=== PATIENT | female | born 1960 | race Caucasian/White ===

== ENCOUNTER → 2024-05-28 | Outpatient (CLI) | payer SELFPAY ==
[2024-05-28 18:20] LABS: Absolute Lymphocyte Count 1.63 X10^3/uL (0.83-4.51); Absolute Neutrophil Count 2.5 X10^3/uL (2.0-7.7); Basophil# 0.04 X10^3/uL; Basophil% 0.9 % (0-1); Eosinophil# 0.08 X10^3/uL; Eosinophils% 1.7 % (0-5); Hematocrit 37.8 % (37-47); Hemoglobin 12.7 g/dL (12.0-15.0); Lymphocyte # 1.63 X10^3/ul (0.83-4.51); Lymphocyte % 35.4 % (19-41); Mean Corp Hgb Conc 33.6 g/dL (32-36); Mean Corpuscular Hgb 31.5 pg (27.0-32.0); Mean Corpuscular Volume 93.8 fL (81-99); Mean Platelet Vol. 10.1 fl (6.2-12.0); Monocyte# 0.36 X10^3/uL; Monocyte% 7.8 % (0-10); NRBC Flagged by Analyzer 0 % (0-5); Neutrophil # 2.48 X10^3/uL (2.7-7.7); Platelet Count 280 K/mm3 (150-450); RBC Distribution Width CV 13.2 % (11.6-14.6); RBC Distribution Width SD 45.7 fl (35.1-43.9); Red Blood Count 4.03 M/mm3 (4.2-5.4); White Blood Count 4.6 K/mm3 (4.4-11.0)
[2024-05-28 18:29] LABS: CRP < 3.00 mg/L (0.0-3.0)
[2024-05-28 18:33] LABS: Erythrocyte Sedimentation Rate 18 mm/hr (0-30)
== END | disposition home or self-care (01) ==
LOC: MTLAB 16:23 → LAB 17:01 → MTLAB 17:02
PROVIDERS: PCP Nurse Practitioner Primary Care; Referring Provider Internal Medicine Pulmonary Disease; Visit Provider Internal Medicine Pulmonary Disease
DX: R91.1 Solitary pulmonary nodule (principal)
CPT/HCPCS: 36415; 82164; 82784; 82785; 85025; 85652; 86140; 86480; 87385

== ENCOUNTER → 2024-06-26 | Outpatient (CLI) | payer SELFPAY ==
[2024-06-26 18:08] LABS: Erythrocyte Sedimentation Rate 5 mm/hr (0-30)
[2024-06-28 14:08] LABS: Angiotensin Convert Enzyme 74 U/L (14-82)
== END | disposition home or self-care (01) ==
LOC: MTLAB 13:20
PROVIDERS: PCP Nurse Practitioner Primary Care; Referring Provider Internal Medicine Pulmonary Disease; Visit Provider Internal Medicine Pulmonary Disease
DX: R91.8 Other nonspecific abnormal finding of lung field (principal); R05.9 Cough, unspecified
CPT/HCPCS: 36415; 82164; 85652

== ENCOUNTER → 2024-08-27 | Outpatient (CLI) | payer SELFPAY ==
--- NOTE | 2024-08-27 12:43 | CT_ITS ---
PROCEDURE: CHEST WITHOUT CONTRAST 08/27/2024 REASON FOR EXAM: OTHER NONSPECIFIC ABNORMAL FINDING OF LUNG FIELD TECHNIQUE: Chest CT without contrast. Coronal and Sagittal reconstruction series were provided. One or more dose reduction techniques were used (e.g., Automated exposure control, adjustment of the mA and/or kV according to patient size, use of iterative reconstruction technique RADIATION DOSE SUMMARY: CTDlvol: 9 mGy DLP: 328 mGycm COMPARISON: 05/16/2024 FINDINGS: Central airways are patent. Bronchial wall thickening. There is redemonstration of multifocal, bilateral, tree-in-bud densities, and areas of septal thickening, right lung [id number], without notable interval change since the previous examination. Small right middle lobe atelectasis redemonstrated. New small left posterior lower lobe atelectasis. No definite new consolidation. No effusion or pneumothorax. Unremarkable base of neck and axilla. Thoracic spine degeneration. Normal esophagus. Normal heart size. No acute vascular pathology. Mediastinal adenopathy, likely reactive. No acute chest wall findings. No acute upper abdominal findings. CT/Chest without Contrast IMPRESSION: Overall stable appearance to bilateral lung densities most consistent with infe ctious/inflammatory condition. Consider six-month follow up imaging, or as clinically determined. Reading Location: [place] [id number]
== END | disposition home or self-care (01) ==
LOC: CT 12:40
PROVIDERS: PCP Nurse Practitioner Primary Care; Referring Provider Internal Medicine Pulmonary Disease; Visit Provider Internal Medicine Pulmonary Disease
DX: R91.8 Other nonspecific abnormal finding of lung field (principal); R05.9 Cough, unspecified
CPT/HCPCS: 71250

== ENCOUNTER → 2025-02-06 | Outpatient (CLI) | payer SELFPAY ==
--- NOTE | 2025-02-06 16:21 | CT_ITS ---
EXAM: CT Chest Without Intravenous Contrast CLINICAL INDICATION: ABN FINDING OF LUNG FIELD TECHNIQUE: Axial computed tomography images of the chest without intravenous contrast. This CT exam was performed using one or more of the following dose reduction techniques: automated exposure control, adjustment of the mA and/or kV according to patient size, and/or use of iterative reconstruction technique. RADIATION DOSE: CTDIvol = 8.6 mGy, DLP = 317.1 mGy-cm COMPARISON: No relevant prior studies available. FINDINGS: LUNGS AND PLEURAL SPACES: Diffuse bilateral tree-in-bud opacities with nodularity of both lungs measuring up to 9 mm, unchanged. No significant effusion. No pneumothorax. HEART: Unremarkable. No cardiomegaly. No significant pericardial effusion. No significant coronary artery calcifications. MEDIASTINUM: Scattered mediastinal lymph nodes some of which are upper limits of normal in size and are most likely reactive lymph nodes. BONES/JOINTS: Unremarkable. No acute fracture. SOFT TISSUES: Unremarkable. VASCULATURE: Unremarkable. No thoracic aortic aneurysm. LYMPH NODES: See above. CT/Chest without Contrast IMPRESSION: 1. Diffuse bilateral tree-in-bud opacities with nodularity of both lungs measu ring up to 9 mm, unchanged. 2. Scattered mediastinal lymph nodes some of which are upper limits of normal in size and are most likely reactive lymph nodes. Reading Location: [facility]
--- OUTSIDE RECORDS SUMMARY | 2025-02-06 16:36 | XMS RPT_ITS | CCD ---
Author Organization [facility] Care Team Providers Care Skilled Nursing Case Manager Name Role Phone LEONARD DISABILITY MANAGER-BELT BUILDER HELPER, DON S Primary Care Physicia n LEONARD DISABILITY MANAGER-BELT BUILDER HELPER, DON S Primary Care Unava ilable KHOI DISABILITY MANAGER-BELT BUILDER HELPER, YAMILETH Attending Unavailab le LEONARD DISABILITY MANAGER-BELT BUILDER HELPER, DON S Attending Unava ilable LEONARD DISABILITY MANAGER-BELT BUILDER HELPER, DON S Primary Care Unava ilable LEONARD DISABILITY MANAGER-BELT BUILDER HELPER, DON S Primary Care Unava ilable JAMESON LUIS DO Attending Unavailable LUCAS DISABILITY MANAGER-BELT BUILDER HELPER, ARAMIS Xiong Attending Un available LEONARD DISABILITY MANAGER-BELT BUILDER HELPER, DON S Primary Care Unava ilable LEONARD DISABILITY MANAGER-BELT BUILDER HELPER, DON S Attending Unava ilable LEONARD DISABILITY MANAGER-BELT BUILDER HELPER, DON S Primary Care Unava ilable LEONARD DISABILITY MANAGER-BELT BUILDER HELPER, DON S Primary Care Unava ilable LEONARD DISABILITY MANAGER-BELT BUILDER HELPER, DON S Attending Unava ilable LEONARD DISABILITY MANAGER-BELT BUILDER HELPER, DON S Attending Unava ilable LEONARD DISABILITY MANAGER-BELT BUILDER HELPER, DON S Primary Care Unava ilable LEONARD DISABILITY MANAGER-BELT BUILDER HELPER, DON S Attending Unava ilable LEONARD DISABILITY MANAGER-BELT BUILDER HELPER, DON S Primary Care Unava ilable [place] POLL WATCHER-C, Don Primary Care Provider Dr. Juan Pablo Laguna MD, V Attending Provider Dr. uJan Pablo Laguna MD, V Referring Provider Juan Pablo Laguna V Attending Unavailable Juan Pablo Laguna V Referring Unavailable Leonard POLL WATCHERDon Primary Care Unavailable Leonard POLL WATCHER, Don Primary Care Unavailable Juan Pablo Laguna V Attending Unavailable Juan Pablo Laguna V Referring Unavailable LeonardDon stafford NP Primary Care Unavailable Juan Pablo Laguna V Attending Unavailable Juan Pablo Laguna V Referring Unavailable Allergies Allergy Classification Reported Allergen(s) Allergy Type Date of Onset Reaction(s) Facility (1 source) Penicillin; Translations: [penicillins] Drug Allergy Weal (disorder), Eruption of skin (disorder) [facility] [place] Medications Current Medications Medication Drug Class(es) Dates Sig (Normalized) Sig (Original) Co-Q10 (3 sources) Start: 10-01-2014 take 1 dose by mouth once daily Co-Q10 Dose : 500 mg =, Oral, qDay, 0 Refill(s) Start Date: 10/01/14 Status: Ordered Repeat number: 1 Start: 10-01-2014 take 1 dose by mouth once campos y Co-Q10 Dose : 500 mg =, Oral, qDay, 0 Refill(s) Start Date: 10/01/14 Status: Ordered Fish Oils (3 sources) Start: 10-01-2014 omega-3 fish o il 1000 mg oral capsule Dose : 1,000 mg = 1 cap(s), Oral, Daily, # 60 cap(s), 0 Refill(s) Start Date: 10/01/14 Status: Ordered Quantity: 60.0 Unit: cap(s) Repeat number: 1 Start: 10-01-2014 omega-3 fish o il 1000 mg oral capsule Dose : 1,000 mg = 1 cap(s), Oral, Daily, # 60 cap(s), 0 Refill(s) Start Date: 10/01/14 Status: Ordered Milk thistle extract (3 sources) Start: 10-01-2014 take 1 tablet by mouth once daily Milk Thistle oral tablet 1 tab, Oral, Daily, 0 Refill(s) Start Date: 10/01/14 Status: Ordered Repeat number: 1 Start: 10-01-2014 take 1 tablet by nica th once daily Milk Thistle oral tablet 1 tab, Oral, Daily, 0 Refill(s) Start Date: 10/01/14 Status: Ordered Nature's Bounty Women's Daily Multivitamin (3 sources) Start: 10-01-2014 take 1 tablet by mouth once daily Nature's Bounty Women's Daily Multivitamin 1 tab, Oral, qDay, 0 Refill(s) Start Date: 10/01/14 Status: Ordered Repeat number: 1 Start: 10-01-2014 take 1 tablet by nica th once daily Nature's B[employer] Women's Daily Multivitamin 1 tab, Oral, qDay, 0 Refill(s) Start Date: 10/01/14 Status: Ordered Red Yeast Rice 600 mg oral capsule (1 source) Start: 07-04-2023 Red Yeast Rice 600 mg oral capsule 0 Refill(s) Start Date: 07/04/23 Status: Ordered Repeat number: 1 Reversitol (3 sources) Start: 10-01-2014 take 1 capsule by mouth once daily Reversitol 1 capsule, Oral, Daily, 0 Refill(s) Start Date: 10/01/14 Status: Ordered Repeat number: 1 Start: 10-01-2014 take 1 capsule by mo uth once daily Reversitol 1 capsule, Oral, Daily, 0 Refill(s) Start Date: 10/01/14 Status: Ordered Completed/Discontinued Medications Medication Drug Class(es) Dates Sig (Normalized) Sig (Original) calcium carbonate 1500 mg oral tablet (3 sources) Start: 11-13-2018 End: 02-11-2019 calcium (as carbonate) 600 mg oral tablet Dose : 600 mg = 1 tab(s), Oral, BIDM, # 60 tab(s), 2 Refill(s), Pharmacy: [id number] Start Date: 11/13/18 Stop Date: 02/11/19 Status: Ordered Quantity: 60.0 Unit: tab(s) Repeat number: 3 cholecalciferol 0.01 mg oral tablet (2 sources) Vitamin D Start: 11-13-2018 End: 02-11-2019 cholecalciferol 400 intl units oral tablet Dose : 800 unit(s) = 2 tab(s), Oral, Daily, # 60 tab(s), 2 Refill(s), Pharmacy: [id number] Start Date: 11/13/18 Stop Date: 02/11/19 Status: Ordered Problems Active Problems Problem Classification Problem Date Documented Da te Episodic/Chronic Allergic reactions (1 source) Eruption due to drug 10-26-2023 Episodic Osteoarthritis (3 sources) Arthritis 10-01-2014 Chronic Other gastrointestinal disorders (3 sources) Constipation 10-01-2014 Episodic Other lower respiratory disease (1 source) Cough 04-10-2024 Episodic Other lower respiratory disease (1 source) Other nonspecific abnormal finding of lung field; Translations: [Other nonspecific abnormal finding of lung field] Onset: 08-29-2024 Episodic Other upper respiratory disease (1 source) Allergic rhinitis 04-10-2024 Chronic Other upper respiratory infections (2 sources) Acute maxillary sinusitis; Translations: [Posterior rhinorrhea] 04-12-2023 Episodic Residual codes; unclassified (3 sources) Postmenopausal state 10-17-2018 Episodic Unclassified (8 sources) Patient encounter status 10-17-2018 Unclassified (6 sources) Screening status 10-17-2018 Unclassified (2 sources) Cancer cervix screening status 09-30-2022 Past or Other Problems Problem Classification Problem Date Documented Da te Episodic/Chronic Other lower respiratory disease (1 source) Solitary pulmonary nodule; Translations: [Solitary pulmonary nodule] Onset: 05-31-2024 Episodic Other screening for suspected conditions (not mental disorders or infectious disease) (2 sources) Encounter for screening for malignant neoplasm of cervix; Translations: [Encounter for screening for malignant neoplasm of cervix] Onset: 09-30-2022 Episodic Results Test Name Value Interpretation Reference Range Facility Chest without Contraston Chest without Contrast [facility] [address] [place], [place] [address] Chest without Contrast MR#: [id number] Acct: [id number] Name: HUEY PRATER Rep #: [id number] : 1960 F 64 From: Eris Almonte MD PCP: Don Valle, POLL WATCHER-C Status: REG CLI Study: Chest without Contrast Date of Exam: 08/27/24 Exam# [id number] Ordering Dr: Juan Pablo Laguna MD PROCEDURE: CHEST WITHOUT CONTRAST 08/27/2024 REASON FOR EXAM: OTHER NONSPECIFIC ABNORMAL FINDING OF LUNG FIELD TECHNIQUE: Chest CT without contrast. Coronal and Sagittal reconstruction series were provided. One or more dose reduction techniques were used (e.g., Automated exposure control, adjustment of the mA and/or kV according to patient size, use of iterative reconstruction technique RADIATION DOSE SUMMARY: CTDlvol: 9 mGy DLP: 328 mGycm COMPARISON: 05/16/2024 FINDINGS: Central airways are patent. Bronchial wall thickening. There is redemonstration of multifocal, bilateral, tree-in-bud densities, and areas of septal thickening, right lung hhxow-tozilco-rohu-l eft, without notable interval change since the previous examination. Small right middle lobe atelectasis redemonstrated. New small left posterior lower lobe atelectasis. No definite new consolidation. No effusion or pneumothorax. Unremarkable base of neck and axilla. Thoracic spine degeneration. Normal esophagus. Normal heart size. No acute vascular pathology. Mediastinal adenopathy, likely reactive. No acute chest wall findings. No acute upper abdominal findings. CT/Chest without Contrast IMPRESSION: Overall stable appearance to bilateral lung densities most consistent with infectious/inflammat ory condition. Consider six-month follow up imaging, or as clinically determined. Reading Location: [place] [address] CC: IRINA Valle; Dr. Juan Pablo Laguna MD Pit Hoist Operator: Signed Normal [facility] Angiotensin Convert Enzymeon 06-28-2024 ANGIOT-CONV.ENZ 74 U/L Normal [facility] Comment on above: Result Comment: Perf ormed at: - [facility] [address] [id number] Sales Development Representative: Brown Goode PhD, Phone: [phone] Performed By: #### L 3100.6900, L101.9900 #### [facility] [address] [place], [address] Erythrocyte Sed Rateon 06-26 SED RATE 5 mm/hr Normal - [facility] Comment on above: Performed By: #### L 3100.6900, L101.9900 #### [facility] [address] [place], [address] Erythrocyte sedimentation ra teOrdered By: Jaun Pablo Laguna on 06-26-2024 ESR (Bld) [Velocity] 5 mm/h 0- [facility] [place] Serum or plasma angiotensin converting enzyme measurement (enzymatic activity/volume)Ordered By: Juan Pablo Laguna on 06-26-2024 Angiotensin converting enzyme [Catalytic activity/Vol] 74 U/L [facility] Comment on above: Performed at: - [facility] [place], [place] [id number] Director: Brown Goode PhD, Phone: [phone] Angiotensin Convert Enzymeon 06-07-2024 ANGIOT-CONV.ENZ 84 U/L High 14-82 [facility] Comment on above: Performed By: #### L 3400.8000, L3100.6900, L3100.0902, L100.0100, L501.6710, L3200.1100, L101.9900 #### [facility] [address] [place], [address] Immunoglobulins G/A/M/Eduardo IMMUNOGLOB A QN 121 mg/dL Normal 87-352 [facility] Comment on above: Order Comment: N Performed By: #### L 3400.8000, L3100.6900, L3100.0902, L100.0100, L501.6710, L3200.1100, L101.9900 #### [facility] [address] [place], [address] IMMUNOGLOB E QN 15 IU/mL Normal 6-495 [facility] Comment on above: Order Comment: N Performed By: #### L 3400.8000, L3100.6900, L3100.0902, L100.0100, L501.6710, L3200.1100, L101.9900 #### [facility] [address] [place], [address] IMMUNOGLOB G QN 2266 mg/dL High 586-1602 [facility] Comment on above: Order Comment: N Performed By: #### L 3400.8000, L3100.6900, L3100.0902, L100.0100, L501.6710, L3200.1100, L101.9900 #### [facility] [address] [place], [address] IMMUNOGLOB M QN 98 mg/dL Normal 26-217 [facility] Comment on above: Order Comment: N Performed By: #### L 3400.8000, L3100.6900, L3100.0902, L100.0100, L501.6710, L3200.1100, L101.9900 #### [facility] [address] [place], [address] Quantiferon TB-Gold+on 06-07 QFT MITOGEN BELKYS > 10.00 Normal . [facility] Comment on above: Performed By: #### L 3400.8000, L3100.6900, L3100.0902, L100.0100, L501.6710, L3200.1100, L101.9900 #### [facility] [address] [place], [address] QFT NIL VALUE 0.04 IU/mL Normal . [facility] Comment on above: Performed By: #### L 3400.8000, L3100.6900, L3100.0902, L100.0100, L501.6710, L3200.1100, L101.9900 #### [facility] [address] [place], [address] QFT TB GOLD+ Comment Normal . [facility] Comment on above: Result Comment: Kasi tiFERON-TB Gold Plus is a qualitative indirect test for M tuberculosis infection (including disease) and is intended for use in conjunction with risk assessment, radiography, and other medical and diagnostic evaluations. The QuantiFERON-TB Gold Plus result is determined by subtracting the Nil value from either TB antigen (Ag) value. The Mitogen tube serves as a control for the test. Performed By: #### L 3400.8000, L3100.6900, L3100.0902, L100.0100, L501.6710, L3200.1100, L101.9900 #### [facility] [address] [place], [address] QFT TB POS CRIT Negative Normal Negative [facility] Comment on above: Result Comment: No r esponse to M tuberculosis antigens detected. Infection with M tuberculosis is unlikely, but high risk individuals should be considered for additional testing (ATS/IDSA/CDC Clinical Practice Guidelines, 2017). The reference range is an Antigen minus Nil result of <0.35 IU/mL. The specimen received for QuantiFERON testing was incubated by the ordering institution. Specific procedures outlined in our Directory of Services and in the package insert for the QuantiFERON Gold (In Tube) test must be followed to enable for proper stimulation of cells for the production of interferon gamma. Chemiluminescence immunoassay methodology Performed By: #### L 3400.8000, L3100.6900, L3100.0902, L100.0100, L501.6710, L3200.1100, L101.9900 #### [facility] [address] [place], [place], [id number] QFT TB1+ AG BELKYS 0.04 IU/mL Normal . [facility] Comment on above: Performed By: #### L 3400.8000, L3100.6900, L3100.0902, L100.0100, L501.6710, L3200.1100, L101.9900 #### [facility] [address] [place], [address] QFT TB2+ AG BELKYS 0.04 IU/mL Normal . [facility] Comment on above: Performed By: #### L 3400.8000, L3100.6900, L3100.0902, L100.0100, L501.6710, L3200.1100, L101.9900 #### [facility] [address] [place], [place], [id number] URINE HISTOPLASMA ANTIGENon 06-07-2024 UR HISTO AG Negative Normal <0.2 ng/mL [facility] Comment on above: Result Comment: Perf ormed at: [address] [id number] Sales Development Representative: Brown Goode PhD, Phone: [phone] Performed at: [facility] [id number] Sales Development Representative: Jose Jones MD, Phone: [phone] Performed By: #### L 3400.8000, L3100.6900, L3100.0902, L100.0100, L501.6710, L3200.1100, L101.9900 #### [facility] [address] [place], [address] Absolute lymphocyte countOrd ered By: Juan Pablo Laguna on 05-28-2024 Lymphocytes Auto (Unsp spec) [#/Vol] 1.63 10*3/uL 0.83-4.51 [facility] Absolute neutrophil countOrd ered By: Juan Pablo Laguna on 05-28-2024 Neutrophils (Bld) [#/Vol] 2.5 10*3/uL 2.0-7.7 [facility] Automated lymphocyte count a s percentage of total leukocytesOrdered By: Juan Pablo Laguna on 05-28-2024 Lymphocytes/100 WBC Auto (Unsp spec) 35.4 % 19-41 [facility] Basophil percentageOrdered B y: Juan Pablo Laguna on 05-28-2024 Basophils/100 WBC (Bld) 0.9 % 0-1 [facility] CBC W/Diff, Automatedon 04-30 Absolute Lymph 1.63 X10 3/uL Normal 0.83-4.51 [facility] Comment on above: Performed By: #### L 3400.8000, L3100.6900, L3100.0902, L100.0100, L501.6710, L3200.1100, L101.9900 #### [facility] [address] [place], [address] Absolute Neut 2.5 X10 3/uL Normal 2.0-7.7 [facility] Comment on above: Performed By: #### L 3400.8000, L3100.6900, L3100.0902, L100.0100, L501.6710, L3200.1100, L101.9900 #### [facility] [address] [place], [address] Basophils/100 WBC (Bld) 0.9 % Normal 0-1 [facility] Comment on above: Performed By: #### L 3400.8000, L3100.6900, L3100.0902, L100.0100, L501.6710, L3200.1100, L101.9900 #### [facility] [address] [place], [address] Eosinophils/100 WBC (Bld) 1.7 % Normal 0-5 [facility] Comment on above: Performed By: #### L 3400.8000, L3100.6900, L3100.0902, L100.0100, L501.6710, L3200.1100, L101.9900 #### [facility] [address] [place], [address] Erythrocyte distribution width (RBC) [Ratio] 13.2 % Normal 11.6-14.6 [facility] Comment on above: Performed By: #### L 3400.8000, L3100.6900, L3100.0902, L100.0100, L501.6710, L3200.1100, L101.9900 #### [facility] [address] [place], [address] Hematocrit (Bld) [Volume fraction] 37.8 % Normal 37-47 [facility] Comment on above: Performed By: #### L 3400.8000, L3100.6900, L3100.0902, L100.0100, L501.6710, L3200.1100, L101.9900 #### [facility] [address] [place], [address] Hemoglobin (Bld) [Mass/Vol] 12.7 g/dL Normal 12.0-15.0 [facility] Comment on above: Performed By: #### L 3400.8000, L3100.6900, L3100.0902, L100.0100, L501.6710, L3200.1100, L101.9900 #### [facility] [address] [place], [address] IG% 0.200 Normal 0.0-0.9 [facility] Comment on above: Result Comment: IG% - Immature Granulocytes (promyelocytes, myelocytes and metamyelocytes) > 1% indicates that a LEFT SHIFT is Present. Performed By: #### L 3400.8000, L3100.6900, L3100.0902, L100.0100, L501.6710, L3200.1100, L101.9900 #### [facility] [address] [place], [address] Lymphocytes/100 WBC (Bld) 35.4 % Normal 19-41 [facility] Comment on above: Performed By: #### L 3400.8000, L3100.6900, L3100.0902, L100.0100, L501.6710, L3200.1100, L101.9900 #### [facility] [address] [place], [address] MCH (RBC) [Entitic mass] 31.5 pg Normal 27.0-32.0 [facility] Comment on above: Performed By: #### L 3400.8000, L3100.6900, L3100.0902, L100.0100, L501.6710, L3200.1100, L101.9900 #### [facility] [address] [place], [address] MCHC (RBC) [Mass/Vol] 33.6 g/dL Normal 32-36 [facility] Comment on above: Performed By: #### L 3400.8000, L3100.6900, L3100.0902, L100.0100, L501.6710, L3200.1100, L101.9900 #### [facility] [address] [place], [address] MCV (RBC) [Entitic vol] 93.8 fL Normal 81-99 [facility] Comment on above: Performed By: #### L 3400.8000, L3100.6900, L3100.0902, L100.0100, L501.6710, L3200.1100, L101.9900 #### [facility] [address] [place], [address] Monocytes/100 WBC (Bld) 7.8 % Normal 0-10 [facility] Comment on above: Performed By: #### L 3400.8000, L3100.6900, L3100.0902, L100.0100, L501.6710, L3200.1100, L101.9900 #### [facility] [address] [place], [address] Neutrophils/100 WBC (Bld) 54.0 % Normal 47-70 [facility] Comment on above: Performed By: #### L 3400.8000, L3100.6900, L3100.0902, L100.0100, L501.6710, L3200.1100, L101.9900 #### [facility] [address] [place], [address] Nucleated RBC (Bld) [#/Vol] 0 10*3/uL Normal 0-5 [facility] Comment on above: Performed By: #### L 3400.8000, L3100.6900, L3100.0902, L100.0100, L501.6710, L3200.1100, L101.9900 #### [facility] [address] [place], [address] Platelet mean volume (Bld) [Entitic vol] 10.1 fL Normal 6.2-12.0 [facility] Comment on above: Performed By: #### L 3400.8000, L3100.6900, L3100.0902, L100.0100, L501.6710, L3200.1100, L101.9900 #### [facility] [address] [place], [address] Platelets (Bld) [#/Vol] 280 10*3/uL Normal 150-450 [facility] Comment on above: Performed By: #### L 3400.8000, L3100.6900, L3100.0902, L100.0100, L501.6710, L3200.1100, L101.9900 #### [facility] [address] [place], [address] RBC (Bld) [#/Vol] 4.03 10*6/uL Low 4.2-5.[address] [facility] Comment on above: Performed By: #### L 3400.8000, L3100.6900, L3100.0902, L100.0100, L501.6710, L3200.1100, L101.9900 #### [facility] [address] [place], [address] RDW SD 45.7 fl High 35.1-43.9 [facility] Comment on above: Performed By: #### L 3400.8000, L3100.6900, L3100.0902, L100.0100, L501.6710, L3200.1100, L101.9900 #### [facility] [address] [place], [address] WBC (Bld) [#/Vol] 4.6 10*3/uL Normal 4.4-11.0 [facility] Comment on above: Performed By: #### L 3400.8000, L3100.6900, L3100.0902, L100.0100, L501.6710, L3200.1100, L101.9900 #### [facility] [address] [place], [address] CRPon 05-28-2024 C-REACTIVE PROT < 3.00 Normal 0.0-3.0 [facility] Comment on above: Performed By: #### L 3400.8000, L3100.6900, L3100.0902, L100.0100, L501.6710, L3200.1100, L101.9900 #### [facility] [address] [place], [address] CRP [Mass/Vol]Ordered By: Katya Laguna on 05-28-2024 C-Reactive Protein Extended Range < 3.00 mg/L 0.0-3.0 [facility] Eosinophil percentageOrdered By: Juan Pablo Laguna on 05-28-2024 Eosinophils/100 WBC (Bld) 1.7 % 0-5 [facility] Erythrocyte Sed Rateon 05-28 SED RATE 18 mm/hr Normal 0-30 [facility] Comment on above: Performed By: #### L 3400.8000, L3100.6900, L3100.0902, L100.0100, L501.6710, L3200.1100, L101.9900 #### [facility] [address] [place], [place], [id number] Erythrocyte distribution wid th (RBC) [Ratio]Ordered By: Juan Pablo Laguna on 05-28-2024 Erythrocyte distribution width (RBC) [Entitic vol] 45.7 fL High 35.1-43.9 [facility] Erythrocyte distribution wid th ratioOrdered By: Juan Pablo Laguna on 05-28-2024 Erythrocyte distribution width (RBC) [Ratio] 13.2 % 11.6-14.6 [facility] Erythrocyte distribution wid th standard deviationOrdered By: Juan Pablo Laguna on 05-28-2024 Erythrocyte distribution width (RBC) [Ratio] 45.7 fl High 35.1-43.9 [facility] Erythrocyte sedimentation ra teOrdered By: Juan Pablo Laguna on 05-28-2024 ESR (Bld) [Velocity] 18 mm/h 0-30 [facility] Hematocrit Auto (Bld) [Volum e fraction]Ordered By: Juan Pablo Laguna on 05-28-2024 Hematocrit (Bld) [Volume fraction] 37.8 % 37-47 [facility] Hemoglobin measurementOrdere d By: Juan Pablo Laguna on 05-28-2024 Hemoglobin (Bld) [Mass/Vol] 12.7 g/dL 12.0-15.0 [facility] IgEOrdered By: Juan Pablo xiong on 05-28-2024 IgE 15 IU/mL 6-495 [facility] Immature granulocytes/100 WB C Auto (Bld)Ordered By: Juan Pablo Laguna on 05-28-2024 Immature granulocytes/100 WBC (Bld) 0.200 % 0.0-0.9 [facility] Comment on above: IG% - Immature Granu locytes (promyelocytes, myelocytes and metamyelocytes) > 1% indicates that a LEFT SHIFT is Present. Lymphocytes Auto (Unsp spec) [#/Vol]Ordered By: Juan Pablo Laguna on 05-28-2024 Lymphocytes (Bld) [#/Vol] 1.63 10*3/uL 0.83-4.51 [facility] Lymphocytes/100 WBC Auto (Un sp spec)Ordered By: Juan Pablo Laguna on 05-28-2024 Lymphocytes/100 WBC (Bld) 35.4 % 19-41 [facility] MCV (mean corpuscular volume ) determinationOrdered By: Juan Pablo Laguna on 05-28-2024 MCV (RBC) [Entitic vol] 93.8 fL 81-99 [facility] Mean corpuscular hemoglobin (MCH) determinationOrdered By: Juan Pablo Laguna on 05-28-2024 MCH (RBC) [Entitic mass] 31.5 pg 27.0-32.0 [facility] Mean corpuscular hemoglobin concentration (MCHC) determinationOrdered By: Juan Pablo Laguna on 05-28-2024 MCHC (RBC) [Mass/Vol] 33.6 g/dL 32-36 [facility] Mean platelet volume determi nationOrdered By: Juan Pablo Laguna on 05-28-2024 Platelet mean volume (Bld) [Entitic vol] 10.1 fL 6.2-12.0 [facility] Monocyte percentageOrdered B y: Juan Pablo Laguna on 05-28-2024 Monocytes/100 WBC (Bld) 7.8 % 0-10 [facility] Neutrophil percentageOrdered By: Juan Pablo Laguna on 05-28-2024 Neutrophils/100 WBC (Bld) 54.0 % 47-70 [facility] Nucleated red blood cell per centageOrdered By: Juan Pablo Laguna on 05-28-2024 Nucleated RBC/100 WBC (Bld) [Ratio] 0 % 0-5 [facility] Platelet countOrdered By: Katya Laguna on 05-28-2024 Platelets (Bld) [#/Vol] 280 10*3/uL 150-450 [facility] Qualitative QuantiFERON-TB g old in tube testOrdered By: Juan Pablo Laguna on 05-28-2024 M. tuberculosis tuberculin stim IFN-g Ql (Bld) 0.04 IU/mL . [facility] RBC Auto (Bld) [#/Vol]Ordere d By: Juan Pablo Laguna on 05-28-2024 RBC (Bld) [#/Vol] 4.03 10*6/uL Low 4.2-5.[address] [facility] Serum or plasma C reactive p rotein measurement (mass/volume)Ordered By: Juan Pablo Laguna on 05-28-2024 CRP [Mass/Vol] mg/L 0.0-3.0 [facility] Serum or plasma IgA measurem ent (mass/volume)Ordered By: Juan Pablo Laguna on 05-28-2024 IgA [Mass/Vol] 121 mg/dL 87-352 [facility] Serum or plasma IgG measurem ent (mass/volume)Ordered By: Juan Pablo Laguna on 05-28-2024 IgG [Mass/Vol] 2266 mg/dL High 586-1602 [facility] Serum or plasma angiotensin converting enzyme measurement (enzymatic activity/volume)Ordered By: Juan Pablo Laguna on 05-28-2024 Angiotensin converting enzyme [Catalytic activity/Vol] 84 U/L High 14-82 [facility] White blood cell (WBC) count Ordered By: Juan Pablo Laguna on 05-28-2024 WBC (Bld) [#/Vol] 4.6 10*3/uL 4.4-11.[address] [facility] [address] THORAX W/O CONTRASTon CT THORAX W/O CONTRAST ORIGINAL EXAMINATION: CT OF THE CHEST WITHOUT CONTRAST 05/16/2024 1:44 pm TECHNIQUE: CT of the chest was performed without the administration of intravenous contrast. Multiplanar reformatted images are provided for review. Automated exposure control, iterative reconstruction, and/or weight based adjustment of the mA/kV was utilized to reduce the radiation dose to as low as reasonably achievable. COMPARISON: Chest radiograph dated 05/07/2024 HISTORY: ORDERING SYSTEM PROVIDED HISTORY: Reason for Exam: chronic cough, CXR showing interstitial lung disease FINDINGS: Mediastinum: The thyroid gland is only partially visualized. There is no pathologically enlarged axillary adenopathy. There are multi station enlarged mediastinal lymph nodes including a 1 cm right inferior paratracheal node, 1 cm periaortic nodes 1.2 cm subcarinal node. There is limited evaluation of the genet with lack of contrast. the aorta and main pulmonary artery normal in caliber. The heart is normal in size. There is no pericardial effusion. Lungs/pleura: There is no pleural effusion or pneumothorax. There is a diffuse bilateral tree-in-bud type pattern of nodularity with scattered micro nodules that is most pronounced in the right upper and right lower lobes relatively sparing the left lower lobe. There are additional discrete pulmonary nodules including a slightly spiculated left lower lobe nodule measuring 7 mm on series 3, image 214, a 6 mm left upper lobe nodule on image 171 a spiculated irregularly-shaped nodule measuring 9 mm in the right upper lobe along the right major fissure on image 159. There is interlobular septal line thickening that is most pronounced at the lung bases, right worse than left. Upper Abdomen: Partially visualized upper abdomen is limited evaluation with lack of contrast however there is no significant abnormality. Soft Tissues/Bones: No acute fracture or suspicious osseous lesion. Soft tissues are unremarkable. IMPRESSION: 1. Diffuse bilateral tree-in-bud type pattern of nodularity with scattered micro nodules and additional discrete pulmonary nodules measuring up to 9 mm. There is interlobular septal line thickening most pronounced at the lung bases, right worse than left. Differential considerations include infectious, inflammatory and neoplastic etiologies with pattern of endobronchial spread. A short interval follow-up chest CT with contrast in 3 months is recommended. Specific attention for resolution of discrete pulmonary nodules which measure up to 9 mm in the right upper lobe and 7 mm in the left lower lobe as these are indeterminate and may be infectious, inflammatory or neoplastic. 2. Multistation mediastinal lymphadenopathy, reactive versus neoplastic, attention on follow-up. 3. Additional incidental findings are detailed above. Interpreted by: Yenny Day Preliminary Report By: Yenny Day Electronically signed By Yenny Day Dictated Date: 05/17/2024 1:54:29 PM Prelim Date: 05/17/2024 2:04:14 PM Sign Date: 05/17/2024 2:04:14 PM Ordering Provider: DON VALLE [facility] XR CHEST 2 VIEWSon 5 XR CHEST 2 VIEWS ORIGINAL EXAMINATION: TWO XRAY VIEWS OF THE CHEST 05/07/2024 10:43 am COMPARISON: Chest x-ray on 04/10/2024 HISTORY: ORDERING SYSTEM PROVIDED HISTORY: Reason for Exam: 3-4 week follow up abnormal CXR FINDINGS: The heart size and mediastinal contours are normal. Reticulonodular interstitial pattern of the lungs, that is greater on the right lung on the left is unchanged since 04/10/2024. There is no focal lung consolidation. No new infiltrate has developed. There is no pleural fluid or pneumothorax. There is mild thoracic spondylosis, with no acute skeletal abnormality. IMPRESSION: 1. Persistent interstitial lung disease, more severe on the right than on the left. No acute abnormality. RECOMMENDATION: Consider follow-up CT scan for further evaluation. Interpreted by: Gerardo Delarosa MD Preliminary Report By: Gerardo Delarosa MD Electronically signed By Gerardo Delarosa MD Dictated Date: 05/08/2024 3:28:21 AM Prelim Date: 05/08/2024 3:30:41 AM Sign Date: 05/08/2024 3:30:41 AM Ordering Provider: DON VALLE [facility] XR CHEST 2 VIEWSon 5 XR CHEST 2 VIEWS ORIGINAL EXAMINATION: TWO XRAY VIEWS OF THE CHEST04/10/2024 2:22 pm COMPARISON: None HISTORY: ORDERING SYSTEM PROVIDED HISTORY: Reason for Exam: chronic cough x 7 months, FINDINGS: Normal heart, mediastinum and pulmonary vasculature. On the lateral view there is some increased density in the middle lobe region not confirmed on the frontal view. There is also interstitial prominence and ground-glass opacity in the right mid and lower lung compared to the left which is clear. IMPRESSION: Interstitial changes mainly in the right lung of uncertain etiology and chronicity. Questionable findings of middle lobe pneumonia. Evaluate clinically for acute infectious inflammatory pathology. If these findings are non resolving on short-term radiographic follow-up, CT of the chest should be considered. Interpreted by: Dusty Peterson MD Preliminary Report By: Dusty Peterson MD Electronically signed By Dusty Peterson MD Dictated Date: 04/11/2024 2:23:47 PM Prelim Date: 04/11/2024 2:25:52 PM Sign Date: 04/11/2024 2:25:52 PM Ordering Provider: DON VALLE [facility] XR KNEE THREE VIEWS LEFTon 0 07-06-2023 XR KNEE THREE VIEWS LEFT ORIGINAL EXAMINATION: THREE XRAY VIEWS OF THE LEFT KNEE 07/04/2023 12:14 pm COMPARISON: None. HISTORY: ORDERING SYSTEM PROVIDED HISTORY: Reason for Exam: left knee pain Injury due to a fall. FINDINGS: There is no fracture or dislocation of the left knee. The tibiofemoral and patellofemoral joint spaces are maintained. Articular surfaces have normal contour. There is a is small enthesopathic spur at the superior pole of the patella. There is no joint effusion. No periarticular calcifications are present. IMPRESSION: 1. No fracture or dislocation of the left knee. 2. Small patellar spur. Interpreted by: Gerardo Delarosa MD Preliminary Report By: Gerardo Delarosa MD Electronically signed By Gerardo Delarosa MD Dictated Date: 07/06/2023 2:04:29 AM Prelim Date: 07/06/2023 2:06:24 AM Sign Date: 07/06/2023 2:06:24 AM Ordering Provider: YAMILETH WESTFALL [facility] [place] MAMMOGRAM SCREENING BILAT ERAL W/TOMOon 10-27-2022 MA MAMMOGRAM SCREENING BILATERAL W/JAI ORIGINAL FROM: [place] [id number] PROCEDURE FOR: HUEY PRATER [address] [place] [address] Home: PID#: [id number] Exam#: [id number] : 1960 Age: 62 TO: DON VALLE DISABILITY MANAGER [address] [address] Fax: NO FAX EXAMINATION: SCREENING DIGITAL BILATERAL MAMMOGRAM WITH TOMOSYNTHESIS, 10/25/2022 7:36 am TECHNIQUE: Screening mammography of the bilateral breasts was performed with tomosynthesis. 2D standard and 3D tomosynthesis combination imaging performed through both breasts in the MLO and CC projection. Computer aided detection was utilized in the interpretation of this exam. COMPARISON: Mammogram 11/07/2018, 10/03/2015 HISTORY: Breast cancer screening. FINDINGS: BREAST DENSITY: Scattered fibroglandular tissue There are benign calcifications in both breasts. No suspicious masses, calcifications, or distortions are identified in either breast. IMPRESSION: No mammographic evidence of malignancy. Continued screening with annual mammograms is recommended. I have personally reviewed the images of this examination and agree with the resident's findings and interpretation. 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 Pathology Reports Accession: Collected Date/Time: Received Date/Time: Pathologist: [id number] 09/30/2022 08:53 EDT 09/30/2022 18:00 EDT [employer] Cytology Report SPECIMEN: Specimen Description: Liquid Prep w/ HPV Specimen: Cervical/Endocervica l Screening or Diagnostic: Screening RELEVANT HISTORY: LMP: menopausal SPECIMEN ADEQUACY: SATISFACTORY FOR EVALUATION Endocervical/Transfo rmational zone component presence can not be determined due to marked atrophy INTERPRETATION/RESUL TS: NEGATIVE FOR INTRAEPITHELIAL LESION OR MALIGNANCY HIGH RISK HPV TESTING: Event Code Result HPV Interp See Interp HPVN HPV Interp Text: High Risk HPV Typing: NEGATIVE HPV types 16, 18, 31, 33, 35, 39, 45, 51, 52, 56, 58, 59, 66 and 68 DNA were undetectable or below the pre-set threshold. The fran High-Risk HPV DNA Test is not intended for use as a screening device for Pap normal women under age 30 and is not intended to substitute for regular Pap screening. The fran High-Risk HPV DNA Test is designed to augment existing methods for the detection of cervical disease and should be used in conjunction with clinical information derived from other diagnostic and screening tests, physical examinations and full medical history in accordance with appropriate patient management procedures. NOTE: A negative result does not preclude the presence of HPV infection because results depend on adequate specimen collection, absence of inhibitors and sufficient DNA to be detected. As of: 10/11/22 14:43 EDT COMMENT: This Pap Test was successfully processed and evaluated with the assistance of the [employer] ThinPrep Test Imaging System. Pathology Reports Accession: Collected Date/Time: Received Date/Time: Pathologist: [id number] 09/30/2022 08:53 EDT 09/30/2022 18:00 EDT Electronically Signed by Pathology report verified by [facility] Screened by: [facility] Electronically signed by Bk Nathan Sign-Out Date: 10/11/2022 14:44 Performing Lab: [facility], [address] [place] [address] Pathology Dept Disclaimer The Pap test is a screening test for cervical cancer. As evidenced by published data, it is subject to both inherent false negative and false positive results. Your patient's results should be interpreted in context with pertinent clinical history including gynecological examination. Normal [facility] [place] HPVon 10-11-2022 HPV Interp Normal See Interp HPVN [facility] [place] Comment on above: Order Comment: Order placed by AP_HPV_ORDER rule from [id number] Result Comment: High Risk HPV Typing: NEGATIVE HPV types 16, 18, 31, 33, 35, 39, 45, 51, 52, 56, 58, 59, 66 and 68 DNA were undetectable or below the pre-set threshold. The fran High-Risk HPV DNA Test is not intended for use as a screening device for Pap normal women under age 30 and is not intended to substitute for regular Pap screening. The fran High-Risk HPV DNA Test is designed to augment existing methods for the detection of cervical disease and should be used in conjunction with clinical information derived from other diagnostic and screening tests, physical examinations and full medical history in accordance with appropriate patient management procedures. NOTE: A negative result does not preclude the presence of HPV infection because results depend on adequate specimen collection, absence of inhibitors and sufficient DNA to be detected. See Interp HPVN Performed By: #### H PV #### [address] [address] HPV Source Cervix Normal [facility] [place] Comment on above: Order Comment: Order placed by AP_HPV_ORDER rule from [id number] Performed By: #### H PV #### [address] [address] LABORATORYOrdered By: SYSTEM SYSTEM on 06-25-2022 25-hydroxyvitamin D3 [Mass/Vol] 84.2 ng/mL Invalid Interpretation Code AO ADM SS Albumin BCP dye [Mass/Vol] 3.9 G/dL Invalid Interpretation Code 3.4 - 4.8 G/dL AO ADM SS Albumin/Globulin [Mass ratio] 1.1 {ratio} Invalid Interpretation Code 1.1 - 2.5 ratio AO ADM SS ALP [Catalytic activity/Vol] 54 U/L Invalid Interpretation Code 40 - 135 U/L AO ADM SS ALT With P-5'-P [Catalytic activity/Vol] 22 U/L Invalid Interpretation Code 14 - 59 U/L AO ADM SS AST With P-5'-P [Catalytic activity/Vol] 17 U/L Invalid Interpretation Code 10 - 40 U/L AO ADM SS Bilirubin [Mass/Vol] 0.6 mg/dL Invalid Interpretation Code 0.2 - 1.0 mg/dL AO ADM SS Calcium [Mass/Vol] 9.2 mg/dL Invalid Interpretation Code 8.4 - 10.2 mg/dL AO ADM SS Chloride [Moles/Vol] 103 mmol/L Invalid Interpretation Code 98 - 107 mmol/L AO ADM SS CO2 [Moles/Vol] 27 mmol/L Invalid Interpretation Code 23 - 31 mmol/L AO ADM SS Creatinine [Mass/Vol] 0.92 mg/dL Invalid Interpretation Code 0.55 - 1.02 mg/dL AO ADM SS Electrolyte Balance 7.0 mEq/L Invalid Interpretation Code 4.0 - 15.0 mEq/L AO ADM SS Free T3 [Mass/Vol] 2.40 pg/mL Invalid Interpretation Code 2.30 - 4.00 pg/mL AO ADM SS Free T4 [Mass/Vol] 1.00 ng/dL Invalid Interpretation Code 0.76 - 1.46 ng/dL AO ADM SS GFR/1.73 sq M.predicted among blacks MDRD (S/P/Bld) [Vol rate/Area] 75 ml/min/1.73sqm Invalid Interpretation Code AO Chemistry S GFR/1.73 sq M.predicted among non-blacks MDRD (S/P/Bld) [Vol rate/Area] 62 ml/min/1.73sqm Invalid Interpretation Code AO Chemistry S Globulin 3.4 G/dL Invalid Interpretation Code AO ADM SS Glucose [Mass/Vol] 93 mg/dL Invalid Interpretation Code 80 - 115 mg/dL AO ADM SS Magnesium [Mass/Vol] 1.8 mg/dL Invalid Interpretation Code 1.8 - 2.4 mg/dL AO ADM SS Potassium [Moles/Vol] 4.6 mmol/L Invalid Interpretation Code 3.5 - 5.1 mmol/L AO ADM SS Protein [Mass/Vol] 7.3 G/dL Invalid Interpretation Code 6.4 - 8.2 G/dL AO ADM SS Sodium [Moles/Vol] 137 mmol/L Invalid Interpretation Code 136 - 145 mmol/L AO ADM SS TPO Ab IA Qn unit/mL Invalid Interpretation Code 0 - 60 unit/mL AH ADM SS TSH Qn 1.88 m[IU]/L Invalid Interpretation Code 0.36 - 3.74 mcIU/mL AO ADM SS Urea nitrogen [Mass/Vol] 19 mg/dL Invalid Interpretation Code 7 - 18 mg/dL AO ADM SS Urea nitrogen/Creatinine [Mass ratio] 21 ratio Invalid Interpretation Code 7 - 27 ratio AO ADM SS LABORATORYOrdered By: Maile Pate on 06-25-2022 Basophil, Absolute 0.0 103/mcL Invalid Interpretation Code 0.0 - 0.2 10^3/mcL AO Workflow SS Basophils/100 WBC (Bld) 0.8 % Invalid Interpretation Code 0.0 - 2.5 % AO Workflow SS Eosinophil, Absolute 0.1 103/mcL Invalid Interpretation Code 0.0 - 0.4 10^3/mcL AO Workflow SS Eosinophils/100 WBC (Bld) 1.7 % Invalid Interpretation Code 0.0 - 7.0 % AO Workflow SS Erythrocyte distribution width (RBC) [Ratio] 13.3 % Invalid Interpretation Code 11.5 - 14.5 % AO Workflow SS Hematocrit (Bld) [Volume fraction] 39.4 % Invalid Interpretation Code 37.0 - 47.0 % AO Workflow SS Hemoglobin (Bld) [Mass/Vol] 13.5 G/dL Invalid Interpretation Code 12.0 - 16.0 G/dL AO Workflow SS Lymphocyte, Absolute 2.1 103/mcL Invalid Interpretation Code 0.8 - 3.9 10^3/mcL AO Workflow SS Lymphocytes/100 WBC (Bld) 50.1 % Invalid Interpretation Code 10.0 - 50.0 % AO Workflow SS MCH (RBC) [Entitic mass] 32.2 pg Invalid Interpretation Code 27.0 - 31.2 pg AO Workflow SS MCHC 34.1 G/dL Invalid Interpretation Code 33.0 - 37.0 G/dL AO Workflow SS MCV (RBC) [Entitic vol] 94.2 fL Invalid Interpretation Code 80.0 - 94.0 fL AO Workflow SS Monocyte, Absolute 0.3 103/mcL Invalid Interpretation Code 0.2 - 1.0 10^3/mcL AO Workflow SS Monocytes/100 WBC (Bld) 7.4 % Invalid Interpretation Code 1.7 - 13.0 % AO Workflow SS Neutrophil, Absolute 1.7 103/mcL Invalid Interpretation Code 2.9 - 6.2 10^3/mcL AO Workflow SS Neutrophils/100 WBC (Bld) 40.0 % Invalid Interpretation Code 37.0 - 80.0 % AO Workflow SS Platelet mean volume (Bld) [Entitic vol] 8.2 fL Invalid Interpretation Code 7.4 - 10.4 fL AO Workflow SS Platelets (Bld) [#/Vol] 247 103/mcL Invalid Interpretation Code 130 - 400 10^3/mcL AO Workflow SS RBC (Bld) [#/Vol] 4.19 106/mcL Invalid Interpretation Code 4.20 - 5.40 10^6/mcL AO Workflow SS WBC (Bld) [#/Vol] 4.2 103/mcL Invalid Interpretation Code 4.6 - 10.8 10^3/mcL AO Workflow SS LABORATORYOrdered By: Cecile Rapp on 06-25-2022 Cholesterol [Mass/Vol] 225 mg/dL Invalid Interpretation Code 0 - 200 mg/dL AO ADM SS Cholesterol in HDL [Mass/Vol] 71 mg/dL Invalid Interpretation Code 40 - 60 mg/dL AO ADM SS Cholesterol in LDL [Mass/Vol] 146 mg/dL Invalid Interpretation Code 0 - 130 mg/dL AO ADM SS Triglyceride [Mass/Vol] 38 mg/dL Invalid Interpretation Code 0 - 150 mg/dL AO ADM SS Encounters Encounter Date Encounter Type Care Provider Facility Start: 08-27-2024 End: 08-27-2024 ambulatory Don Valle POLL WATCHER-C Work Phone: -[facility] Start: 08-27-2024 End: 08-27-[address] Juan Pablo Laguna MD -Cat [facility] Work Phone: Start: 08-27-2024 End: 08-27-2024 ambulatory Juan Pablo Laguna Facility:[facility] Start: 06-26-2024 End: 06-26-[address] Juan Pablo Laguna MD -Laboratory [place] Work Phone: Start: 06-26-2024 End: 06-26-2024 ambulatory Don Valle POLL WATCHER Facility:[facility] Start: 05-28-2024 End: 05-28-2024 ambulatory Don Valle POLL WATCHER-C Work Phone: [facility] Work Phone: Start: 05-28-2024 End: 05-28-[address] Juan Pablo Laguna MD -Laboratory, [place] Work Phone: Start: 05-28-2024 End: 05-28-2024 ambulatory Don Valle POLL WATCHER Facility:[facility] Start: 05-16-2024 End: 05-16-2024 ambulatory DON Carmen BAEZLEONARD DISABILITY MANAGER-[employer]T BU[employer] HELPER Facility:[facility] Start: 05-07-2024 End: 05-07-2024 ambulatory DON S LEONARD DISABILITY MANAGER-BELT BUILDER HELPER Facility:[facility] Start: 04-10-2024 End: 04-10-2024 ambulatory DON S LEONARD DISABILITY MANAGER-BELT BUILDER HELPER Facility:[facility] Start: 04-10-2024 End: 04-10-2024 Patient encounter procedure DON S LEONARD DISABILITY MANAGER-BELT BUILDER HELPER [facility] Start: 07-04-2023 End: 07-05-2023 ambulatory DON S LEONARD DISABILITY MANAGER-BELT BUILDER HELPER Facility:[facility] Start: 12-27-2022 ambulatory DON S YASMINM ER DISABILITY MANAGER-BELT BUILDER HELPER Facility:[facility] Start: 10-25-2022 End: 10-26-2022 ambulatory DON VALLE DISABILITY MANAGER-BELT BUILDER HELPER Facility:[facility] Start: 09-30-2022 End: 10-05-2022 ambulatory DON VALLE DISABILITY MANAGER-BELT BUILDER HELPER Facility:[facility] Start: 09-30-2022 End: 10-04-2022 Outreach Lab DON VALLE DISABILITY MANAGER-BELT BUILDER HELPER [facility] Start: 07-15-2022 End: 07-16-2022 ambulatory ARAMIS ZAVALA DISABILITY MANAGER-BELT BUILDER HELPER Facility:[facility] Start: 06-25-2022 End: 06-25-2022 Patient encounter procedure ARAMIS ZAVALA DISABILITY MANAGER-BELT BUILDER HELPER [facility] Procedures Date Procedure Procedure Detail Performing Clinician Start: 08-27-2024 CT of chest without contrast Don Leonard POLL WATCHER-C Work Phone: Start: 05-28-2024 Fungal antigen assay Axel Baezmer POLL WATCHER-C Work Phone: Comment on above: Performed at: [address] [id number] Director: Brown Goode PhD, Phone: [phone] at: [address] [id number] Director: Jose Jones MD, Phone: [phone] Start: 05-28-2024 Immunoglobulin M measurement Don Baezmer POLL WATCHER-C Work Phone: Start: 05-28-2024 In-vitro immunologic test Don Leonard POLL WATCHER-C Work Phone: Comment on above: QuantiFERON-TB Gold Plus is a qualitative indirect test forM tuberculosis infection (including disease) and isintended for use in conjunction with risk assessment,radiography, and other medical and diagnostic evaluations.The QuantiFERON-TB Gold Plus result is determined bysubtracting the Nil value from either TB antigen (Ag)value. The Mitogen tube serves as a control for the test. No response to M tub erculosis antigens detected.Infection with M tuberculosis is unlikely, but high riskindividuals should be considered for additional testing(ATS/IDSA/CDC Clinical Practice Guidelines, 2017). Thereference range is an Antigen minus Nil result of <0.35IU/mL.The specimen received for QuantiFERON testing was incubatedby the ordering institution. Specific procedures outlinedin our Directory of Services and in the package insert forthe QuantiFERON Gold (In Tube) test must be followed toenable for proper stimulation of cells for the productionof interferon gamma. Chemiluminescence immunoassaymethodology Colonoscopy ARAMSI CAROLINA DISABILITY MANAGER-BELT BUILDER HELPER Lipoma (disorder) ARAMIS ZAVALA DISABILITY MANAGER-BELT BUILDER HELPER Comment on above: benign -upper lt dieter st Tonsillectomy ARAMIS LORA DISABILITY MANAGER-BELT BUILDER HELPER Tooth extraction, multiple E DARON LUCAS DISABILITY MANAGER-BELT BUILDER HELPER Plan of Treatment Date Care Activity Detail Author Start: 05-28-2024 Immunoglobulin measurement [facility] Start: 05-28-2024 In-vitro immunologic test [facility] Angiotensin converti ng enzyme [Enzymatic activity/volume] in Serum or Plasma [facility] Histoplasma capsulat um Ag [Presence] in Urine [facility] IgA [Mass/volume] in Serum or Plasma [facility] IgE [Units/volume] i n Serum or Plasma [facility] IgG [Mass/volume] in Serum or Plasma [facility] IgM [Mass/volume] in Serum or Plasma [facility] Mycobacterium tuberc ulosis tuberculin stimulated gamma interferon [Presence] in Blood [facility] [place] Immunizations Immunization Date Immunization Notes Care Provider Fa mary 03-28-2012 tetanus toxoid, reduced diphtheria toxoid, and acellular pertussis vaccine, adsorbed ARAMIS ZAVALA DISABILITY MANAGER-BELT BUILDER HELPER [facility] [place] Payers Date Payer Category Payer Self-pay 2022 Unknown [id number] 1960 Unknown [id number] 2.16.8 [id number] 1960 Unknown [id number] 2.16.8 [id number] 1960 Unknown [id number] 2.16.8 [id number] 1960 Unknown [id number] 2.16.8 [id number] 1961 Unknown [id number] 2.16.8 [id number] 1961 Unknown [id number] 2.16.8 [id number] 1961 Unknown [id number] 2.16.8 [id number] 1960 Unknown [id number] 2.16.8 [id number] Unknown [id number] 2.16.8 [id number] Unknown [id number] 2.16.8 [id number] Unknown [id number] 2.16.8 [id number] Social History Date Type Detail Facility Start: 10-17-2018 End: 04-10-2024 Tobacco smoking status Never smoked tobacco (finding) [facility] Sex Assigned At [facility] Start: 03-29-2014 End: 05-31-2024 Sex Female (finding) [facility] Work Phone: Start: 1960 Sex Assigned At Female [facility] Radiology Diagnostic study note 08-27-2024 Note Date & Type Note Facility 08-27-2024 Radiology Diagnostic study note [facility] Imaging Services [address] [place] [address] [id number] Chest without Contrast MR#: [id number] Acct: [id number] Name: HUEY PRATER Rep #: [id number] : 1960 F 64 From: Tg [place] MD PCP: IRINA Roblero Status: REG Joanne BRANDON Study:Chest without Contrast Date of Exam: 08/27/24 Exam# [id number] Ordering Dr: Juan Pablo Laguna MD PROCEDURE: CHEST WITHOUT CONTRAST 08/27/2024 REASON FOR EXAM: OTHER NONSPECIFIC ABNORMAL FINDING OF LUNG FIELD TECHNIQUE: Chest CT without contrast. Coronal and Sagittal reconstruction series were provided. One or more dose reduction techniques were used (e.g., Automated exposure control, adjustment of the mA and/or kV according to patient size, use of iterative reconstruction technique RADIATION DOSE SUMMARY: CTDlvol: 9 mGy DLP: 328 mGycm COMPARISON: 05/16/2024 FINDINGS: Central airways are patent. Bronchial wall thickening. There is redemonstration of multifocal, bilateral, tree-in-bud densities, and areas of septal thickening, right lung [id number]-left, without notable interval change since the previous examination. Small right middle lobe atelectasis redemonstrated. New small left posterior lower lobe atelectasis. No definite new consolidation. No effusion or pneumothorax. Unremarkable base of neck and axilla. Thoracic spine degeneration. Normal esophagus. Normal heart size. No acute vascular pathology. Mediastinal adenopathy, likely reactive. No acute chest wall findings. No acute upper abdominal findings. CT/Chest without Contrast IMPRESSION: Overall stable appearance to bilateral lung densities most consistent with infectious/inflammatory condition. Consider six-month follow up imaging, or as clinically determined. Reading Location: [place] [address] CC: POLL WATCHER-C Don Valle; Dr. Juan Pablo Laguna MD ~ Pit Hoist Operator: Signed [facility] Evaluation + Plan note 09-30-2022 Radiology Note Date & Type Note Facility 09-30-2022 Evaluation + Plan note Future Scheduled TestsMA Mammo Screening Bilateral w/ Jai 09/30/22 [facility] Evaluation + Plan note Note Date & Type Note Facility Evaluation + Plan note No data available for this section [facility] Evaluation note Note Date & Type Note Facility Evaluation note No assessment information availa michael [facility] Work Phone: Hospital Discharge instructions Note Date & Type Note Facility Hospital Discharge instructions No data available for this section [facility] Progress note Note Date & Type Note Facility Progress note No data available for this section [facility] Reason for referral (narrative) Note Date & Type Note Facility Reason for referral (narrative) No reason for referral information available [facility] Work Phone: Summary Purpose Family History No Family History Records Found Advance Directives No Advanced Directives Records FoundNo Advanced Directives Records FoundNo Advanced Directives Records Found Chief Complaint and Reason for Visit Chief Complaint Admit Date Other nonspecific abnormal finding of андрей ng field August 27, 2024 12:40pm Additional Source Comments Patient Care team informatio n (unrecognized section and content) Team Status: Active Member Role Status Dates Don Valle POLL WATCHER, POLL WATCHER-C Primary Care Provider Active Team Status: Inactive Member Role Status Dates Don Valle POLL WATCHER, POLL WATCHER-C Primary Care Provider Active Start: May 28, 2024 End: May 28, 2024 Dr. Juan Pablo Laguna MD Attending Provider Active Start: May 28, 2024 End: May 28, 2024 Dr. Juan Pablo Laguna MD Referring Provider Active Start: May 28, 2024 End: May 28, 2024 Team Status: Active Member Role/Relationship Status Dates Don Valle POLL WATCHER, POLL WATCHER-C Primary Care Provider Active Team Status: Inactive Member Role/Relationship Status Dates Don Valle NP, POLL WATCHER-C Primary Care Provider Active Start: May 28, 2024 End: May 28, 2024 Dr. Juan Pablo Laguna MD Attending Provider Active Start: May 28, 2024 End: May 28, 2024 Dr. Juan Pablo Laguna MD Referring Provider Active Start: May 28, 2024 End: May 28, 2024 Team Status: Inactive Member Role/Relationship Status Dates Don Valle NP, POLL WATCHER-C Primary Care Provider Active Start: June 26, 2024 End: June 26, 2024 Dr. Juan Pablo Laguna MD Attending Provider Active Start: June 26, 2024 End: June 26, 2024 Dr. Juan Pablo Laguna MD Referring Provider Active Start: June 26, 2024 End: June 26, 2024 Team Status: Inactive Member Role/Relationship Status Dates Don Valle POLL WATCHER, POLL WATCHER-C Primary Care Provider Active Start: August 27, 2024 End: August 27, 2024 Dr. Juan Pablo Laguna MD Attending Provider Active Start: August 27, 2024 End: August 27, 2024 Dr. Juan Pablo Laguna MD Referring Provider Active Start: August 27, 2024 End: August 27, 2024 INFORMATION SOURCE (unrecogn ized section and content) DATE CREATED AUTHOR 07/07/2023 [facility] ([place] DATE CREATED AUTHOR AUTHOR'S ORGANIZ ATION 05/18/2024 [facility] DATE CREATED AUTHOR AUTHOR'S ORGANIZ ATION 08/31/2024 [facility] Goals (unrecognized section and content) Goals may be documented in a n alternate section FOR RECORDS PERTAINING TO PATIENTS WHO ARE OR HAVE BEEN ENROLLED IN A CHEMICAL DEPENDENCY/SUBSTANCEABUSE PROGRAM, SOME INFORMATION MAY BE OMITTED. This clinical summary was aggregated from multiple sources. Caution should be exercised in using it in the provision of clinical care. This summary normalizes information from multiple sources, and as a consequence, information in this document may materially change the coding, format and clinical context of patient data. In addition, data may be omitted in some cases. CLINICAL DECISIONS SHOULD BE BASED ON THE PRIMARY CLINICAL RECORDS. [employer] [facility]. provides no warranty or guarantee of the accuracy or completeness of information in this document.
== END | disposition home or self-care (01) ==
LOC: CT 16:18
PROVIDERS: PCP Nurse Practitioner Primary Care; Referring Provider Internal Medicine Pulmonary Disease; Visit Provider Internal Medicine Pulmonary Disease
DX: R91.8 Other nonspecific abnormal finding of lung field (principal)
CPT/HCPCS: 71250